=== PATIENT | male | born 1960 ===

== ENCOUNTER → 2018-10-19 | Outpatient (CLI) | payer MEDICARE | END | disposition home or self-care (01) | LOC: RAD 10:04 | DX: R10.9 Unspecified abdominal pain (principal); M25.561 Pain in right knee; M71.21 Synovial cyst of popliteal space [Baker], right knee; M71.22 Synovial cyst of popliteal space [Baker], left knee; S83.91XA Sprain of unspecified site of right knee, initial encounter; S83.92XA Sprain of unspecified site of left knee, initial encounter ==

== ENCOUNTER 2018-11-10 14:34 | Outpatient (CLI) | payer MEDICARE | END 2018-11-10 14:35 | disposition home or self-care (01) | LOC: RAD 14:34 ==